=== PATIENT | male | born 1945 | race Caucasian/White ===

== ENCOUNTER 2023-05-06 01:18 | Outpatient (REF) | payer SELFPAY ==
[2023-05-06 10:31] LABS: Anion Gap 9.3; BUN Creatinine Ratio 16.9; Carbon Dioxide 33.4 mmol/L (21.0-32.0); Chloride 106 mmol/L (98-107); Estimated GFR (African America 58 (>=60); Estimated GFR (Non-African Ame 48 (>=60); Glucose 248 mg/dL (74-106); Potassium 3.7 mmol/L (3.5-5.1); Sodium 145 mmol/L (136-145)
== END 2023-05-06 01:19 ==
LOC: LAB 01:18
DX: N18.4 Chronic kidney disease, stage 4 (severe) (principal); L03.90 Cellulitis, unspecified
CPT/HCPCS: 36415; 80048